=== PATIENT | female | born 1990 | race Caucasian/White ===

== ENCOUNTER 2017-01-31 14:46 | Inpatient (IN) | payer OTHER ==
[~2017-01-31] VITALS: Ht 167.6 cm; Wt 70.2 kg
[2017-01-31 15:54] LABS: HEMATOCRIT 42.9 % (34.6-47.8); HEMOGLOBIN 14.6 g/dL (11.7-16.4); WHITE BLOOD COUNT 7.9 x10^3/uL (3.4-10)
[2017-01-31] MEDS ORDERED: SODIUM CHLORIDE FLUSH 10ML SYR IVF ONE (16:00)
[2017-01-31 16:04] LABS: BLOOD UREA NITROGEN 13 mg/dL (7-18)
[2017-01-31] MEDS ORDERED: ETON1VAG VG (18:05)
[2017-01-31] MEDS ORDERED: ENOXAPARIN 60 MG/0.6 ML ONE (18:12)
[2017-01-31 18:16] LABS: IS PT STATUS REG ER OR PRE ER? YES
[2017-01-31] MEDS ORDERED: OMNIPAQUE 350 MG/ML, 100ML BOTTLE ONE (18:17)
[2017-01-31] MEDS ORDERED: ACETAMINOPHEN 325 MG TABLET PO PRN (18:30)
[2017-01-31] MEDS ORDERED: ENOXAPARIN 60 MG/0.6 ML SQ SCH (18:30)
[2017-01-31] MEDS ORDERED: ONDANSETRON ODT 4 MG PO PRN (18:30)
[2017-01-31 21:00] VITALS: BP 129/66
[2017-01-31] MEDS: SODIUM CHLORIDE 0.9% 1,000 ML IV SCH (21:54)
[2017-01-31 22:39] VITALS: BP 129/66
[2017-02-01 02:34] VITALS: BP 113/69
[2017-02-01 05:44] LABS: HEMATOCRIT 38.2 % (34.6-47.8); WHITE BLOOD COUNT 7.2 x10^3/uL (3.4-10)
[2017-02-01 06:12] LABS: BLOOD UREA NITROGEN 16 mg/dL (7-18)
[2017-02-01] MEDS: ENOXAPARIN 60 MG/0.6 ML SQ SCH ×2 (06:14→18:10)
[2017-02-01 06:51] VITALS: BP 112/63
[2017-02-01] MEDS: SENNA/DOCUSATE TABLET PO SCH (08:53)
[2017-02-01] MEDS: SODIUM CHLORIDE 0.9% 1,000 ML IV SCH ×2 (08:53→18:11)
[2017-02-01 12:48] VITALS: BP 119/56
[2017-02-01] MEDS: HYDROcodone/APAP 5/325 TABLET PO PRN (13:31)
[2017-02-01] MEDS ORDERED: WARFARIN 10 MG TABLET PO-COUM ONE (18:00)
[2017-02-01] MEDS ORDERED: ONDANSETRON ODT 4 MG PO PRN (18:30)
[2017-02-01] MEDS ORDERED: ACETAMINOPHEN 325 MG TABLET PO PRN (18:30)
[2017-02-01 20:06] VITALS: BP 122/74
[2017-02-02 02:22] VITALS: BP 104/63
[2017-02-02] MEDS: SODIUM CHLORIDE 0.9% 1,000 ML IV SCH (04:26)
[2017-02-02] MEDS: ENOXAPARIN 60 MG/0.6 ML SQ SCH (06:16)
[2017-02-02 06:57] VITALS: BP 112/70
[2017-02-02] MEDS: SENNA/DOCUSATE TABLET PO SCH (09:07)
[2017-02-02] MEDS: HYDROcodone/APAP 5/325 TABLET PO PRN (10:33)
[2017-02-02] MEDS ORDERED: WARFARIN HIGH DOSE PROTOCOL XX SCH (12:00)
[2017-02-02] MEDS ORDERED: RIVA20TA PO (15:50)
[2017-02-02] MEDS ORDERED: RIVA15TA PO (15:50)
[2017-02-02] MEDS ORDERED: WARFARIN 7.5 MG TABLET PO-COUM SCH (18:00)
[2017-02-05 12:06] LABS: APTT 27.2 sec (.); PROTHROMBIN TIME 10.9 sec (.)
== END 2017-02-02 12:30 | disposition home or self-care (01) | DRG 176 ==
LOC: ED 15:58 → EDIP 18:01 → 4EST 20:42
PROVIDERS: ADMIT Family Medicine; ATTEND Family Medicine
DX: I26.99 Other pulmonary embolism without acute cor pulmonale (principal); S82.401A Unspecified fracture of shaft of right fibula, initial encounter for closed fracture; Z86.711 Personal history of pulmonary embolism; Z80.0 Family history of malignant neoplasm of digestive organs
CPT/HCPCS: 36415; 71010; 71275; 80048; 81241; 82040; 83880; 84484; 84703; 85025; 85300; 85301; 85303; 85306; 85598; 85610; 85613; 85670; 85730; 85732; 86146; 86147; 93005; 96372; 96374; 96375; J1650; Q9967; J7030

== ENCOUNTER 2017-03-09 14:56 | Emergency (ER) | payer OTHER ==
[~2017-03-09] VITALS: Ht 167.6 cm; Wt 67.8 kg
[~2017-03-09 14:56] MED LIST: ETON1VAG VG; RIVA15TA PO; RIVA20TA PO
[2017-03-09] MEDS ORDERED: SODIUM CHLORIDE FLUSH 10ML SYR IVF ONE ×2 (16:00→17:00)
[2017-03-09 16:29] LABS: HEMATOCRIT 47.6 % (34.6-47.8); HEMOGLOBIN 16.3 g/dL (11.7-16.4); WHITE BLOOD COUNT 12.3 x10^3/uL (3.4-10)
[2017-03-09 16:34] LABS: ASPARTATE AMINO TRANSFERASE 33 U/L (15-37); BLOOD UREA NITROGEN 15 mg/dL (7-18)
[2017-03-09 16:39] LABS: IS PT STATUS REG ER OR PRE ER? YES
[2017-03-09] MEDS ORDERED: ACETAMINOPHEN 325 MG TABLET PO ONE (17:00)
[2017-03-09] MEDS ORDERED: SODIUM CHLORIDE 0.9% 1,000ML IVBOLUS ONE ×2 (17:00→19:00)
[2017-03-09] MEDS ORDERED: ACETAMINOPHEN 325 MG TABLET ONE (17:06)
[2017-03-09 17:10] LABS: RAPID INFLUENZA A Negative (Negative); RAPID INFLUENZA B Negative (Negative)
[2017-03-09] MEDS ORDERED: OMNIPAQUE 350 MG/ML, 100ML BOTTLE ONE (18:18)
[2017-03-09] MEDS ORDERED: KETOROLAC 30 MG/1 ML ONE (19:39)
[2017-03-09] MEDS ORDERED: KETOROLAC 30 MG/1 ML IVPush ONE (20:00)
[2017-03-09 20:38] VITALS: BP 111/52
== END 2017-03-09 20:52 | disposition home or self-care (01) ==
LOC: ED 17:42
DX: R07.2 Precordial pain (principal); R06.00 Dyspnea, unspecified; R11.0 Nausea
CPT/HCPCS: 36415; 71010; 71275; 80053; 81003; 83605; 83880; 84145; 84484; 85025; 86756; 87040; 87400; 93005; 93971; 96361; 96374; 99285; J1885; J7030; Q9967

== ENCOUNTER 2019-01-12 09:39 | Emergency (ER) | payer MEDICAID, OTHER ==
[~2019-01-12] VITALS: Ht 167.6 cm; Wt 69.2 kg
[2019-01-12 09:42] VITALS: BP 107/60
--- NOTE | 2019-01-12 09:49 | NUR ---
EKG performed in triage
[2019-01-12 10:29] LABS: BASOPHILS # (AUTO) 0.07 x10^3/uL (0-0.1); BASOPHILS % (AUTO) 1 % (0-1); EOSINOPHILS # (AUTO) 0.15 x10^3/uL (0-0.4); EOSINOPHILS % (AUTO) 2 % (1-7); LYMPHOCYTES # (AUTO) 1.84 x10^3/uL (1-3.4); LYMPHOCYTES % (AUTO) 27 % (22-44); MD NO; MEAN CORPUSCULAR HEMOGLOBIN 34.7 pg (27.0-34.8); MEAN CORPUSCULAR VOLUME 102.2 fL (80-100); MEAN PLATELET VOLUME 10.3 fL (7.4-10.4); MONOCYTES # (AUTO) 0.44 x10^3/uL (0.2-0.8); MONOCYTES % (AUTO) 6 % (2-9); NEUTROPHILS % (AUTO) 64 % (42-75); PLATELET COUNT 196 x10^3/uL (130-400); RED BLOOD COUNT 4.12 x10^6/uL (3.82-5.3); RED CELL DISTRIBUTION WIDTH 12.6 % (9.6-15.2)
[2019-01-12] MEDS ORDERED: SODIUM CHLORIDE FLUSH 10ML SYR IVF ONE (10:30)
[2019-01-12 10:48] LABS: ALBUMIN 3.9 g/dL (3.4-5.0); ANION GAP 6 mmol/L (5-15); CALCIUM 8.9 mg/dL (8.5-10.1); CHLORIDE 111 mmol/L (98-107); CREATININE 0.75 mg/dL (0.55-1.02)
[2019-01-12] MEDS ORDERED: OMNIPAQUE 350 MG/ML, 100ML BOTTLE ONE (11:24)
== END 2019-01-12 12:12 | disposition home or self-care (01) ==
LOC: ED 12:06
DX: S29.012A Strain of muscle and tendon of back wall of thorax, initial encounter (principal); W21.06XA Struck by volleyball, initial encounter; Y93.68 Activity, volleyball (beach) (court); Y92.89 Other specified places as the place of occurrence of the external cause; Y99.8 Other external cause status
CPT/HCPCS: 36415; 71046; 71275; 80048; 81240; 82040; 85025; 85300; 85303; 85306; 85613; 85670; 85705; 85732; 86147; 93005; 99284; Q9967